=== PATIENT | male | born 1965 | race Two or more races ===

== ENCOUNTER 2022-07-20 20:07 | Inpatient (IN) | payer OTHER ==
[~2022-07-20] VITALS: Ht 180.3 cm; Wt 79.4 kg
[2022-07-20] MEDS ORDERED: COZAAR100 MG (20:22)
--- NOTE | 2022-07-20 20:24 | NUR ---
SE RECIBE PACIENTE ALERTA Y ORIENTADO POR BJ CUAL REFIERE SANGRADO RESTAL, REFIERE TENER BANDAR DOLOR ABDOMINAL, SE MIDEN SIGNO VITALES, SE COLOCA EN OBSERVACION.
--- NOTE | 2022-07-20 21:35 | NUR ---
PACIENTE EVALUADO POR EL QUIEN ORDENA TRATAMEINTO MEDICO. SARA MACHADO REALIZA MUESTRAS BAJO MEDIDAS ASEPTICAS Y ADMINISTRA MEDICAMENTOS SY ORDEN.
== END 2022-07-23 09:05 | disposition home or self-care (01) | DRG 331 ==
LOC: ER 20:07 → MEDI 22:49
PROVIDERS: Surgery; ADMIT Internal Medicine; ATTEND Internal Medicine
PROC: BW21ZZZ Computerized Tomography (CT Scan) of Abdomen and Pelvis (ICD-10-PCS; 2022-07-20)
PROC: 0DTJ4ZZ Resection of Appendix, Percutaneous Endoscopic Approach (ICD-10-PCS; 2022-07-21)
PROC: 0WQF4ZZ Repair Abdominal Wall, Percutaneous Endoscopic Approach (ICD-10-PCS; 2022-07-21)
PROC: 0DBH4ZZ Excision of Cecum, Percutaneous Endoscopic Approach (ICD-10-PCS; principal; 2022-07-21 16:00)
DX: K35.890 Other acute appendicitis without perforation or gangrene (principal); K43.9 Ventral hernia without obstruction or gangrene

== ENCOUNTER 2022-10-19 05:15 | Day surgery (SDC) | payer OTHER ==
[~2022-10-19] VITALS: Ht 180.3 cm; Wt 79.4 kg
[~2022-10-19 05:15] MED LIST: COZAAR100 MG
[2022-10-19] MEDS ORDERED: OXYC1TAB9 PO (08:19)
== END 2022-10-19 12:15 | disposition home or self-care (01) ==
LOC: CIR.AMB 05:15
PROVIDERS: ATTEND Surgery
DX: K64.2 Third degree hemorrhoids (principal); K62.5 Hemorrhage of anus and rectum; K64.8 Other hemorrhoids; K64.4 Residual hemorrhoidal skin tags; K62.89 Other specified diseases of anus and rectum; Z20.822 Contact with and (suspected) exposure to COVID-19